=== PATIENT | male | born 1990 | race Caucasian/White ===

== ENCOUNTER 2023-03-08 14:41 | Emergency (ER) | payer OTHER, SELFPAY ==
--- NOTE | 2023-03-08 15:06 | ED.GENADULT ---
HPI - General Adult General Chief complaint: Unspecified Stated complaint: well adult check, medication refill Time Seen by Provider: 03/08/23 15:10 Source: patient Mode of arrival: ambulatory Limitations: no limitations History of Present Illness HPI narrative: Jayesh is a 32-year-old male patient presenting to clinic today with complaints of needing a medication refill on his seizure medication. He reports he is down from [facility]. States that his doctor that usually prescribes it is out of the office and cannot send him in prescription. Reports he only has 3 pills left. Does feel well managed on his oxcarbazepine. States his prescription is for 600 mg tablets twice a day in the morning and 3 tabs at night however insurance will only pay for 1200 mg twice daily. Related Data Allergies Allergy/AdvReac Type Severity Reaction Status Date / Time No Known Allergies Allergy Verified 06/27/21 14:58 Review of Systems Review of Systems: Pertinent positives per HPI. Patient denies any fever, chills, rash, headache, visual changes, dizziness, cough, runny nose, sore throat, shortness of breath, chest pain, palpitations, nausea, vomiting, diarrhea, constipation, abdominal pain, or any urinary issues. PMFSH Social History Social History Social History: current smoker Smoking status: Current every day smoker Comments At the time of my signature, I reviewed and agree with the nursing past medical, surgical, social, and family history. There is no relevant family history pertinent to the patient complaint. Exam Narrative: General: Well-developed, well nourished, in no apparent distress Head: Normocephalic, atraumatic Eyes: Pupils equally round and reactive to light bilaterally, EOM intact, sclera and conjunctive clear, no discharge, lids normal Ears: TMs intact and clear, ear canals clear, no drainage, grossly hearing normal. Nose: Nares patent, no discharge, no inflammation, no sinus tenderness. Mouth: Oropharynx without lesions or masses, good dentition, MMM. Neck: Supple, trachea midline, no enlargement of anterior or posterior cervical nodes, no thyroid masses or goiter palpable. Cardio: Regular rate and rhythm, s1 and s2 normal, no murmur appreciated. Resp: Clear to auscultation bilaterally anteriorly and posteriorly, no rhonchi, rales, wheezing or rubs Course Course Emergency Course: Portions of this record may have been created with voice recognition software. Level of Care: Express Care Visit Vital Signs Vital signs: Vital signs reviewed Medical Decision Making MDM Narrative Medical decision making narrative: At the time of visit patient is resting comfortably on the exam table. Patient appears to be nontoxic. Oxcarbazepine prescription sent to the pharmacy. Supportive measures were discussed with the patient and they voiced understanding discharge instructions and agrees to treatment plan. Return precautions reviewed Differential Diagnosis Differential Diagnosis: Encounter for medication refill, seizure disorder Discharge Plan Discharge Clinical Impression: Encounter for medication refill Patient Disposition: Home, Self-Care Condition: Stable Instructions: Antibiotic Form, Medicine Refill (ED) Additional Instructions: Take medications as prescribed Follow-up with your primary care as soon as possible Prescriptions: New oxcarbazepine 600 mg tablet See Rx Instructions .ROUTE .COMPLEX Qty: 150 0RF Rx Instructions: 600 mg orally ;Take 2 tablet in the AM and 3 tablets at HS. No Action oxcarbazepine 600 mg tablet See Rx Instructions .ROUTE .COMPLEX Qty: 150 5RF Dose Instruction: TAKE 2 TABLETS BY MOUTH ONCE DAILY IN THE MORNING AND 3 AT BEDTIME Rx Instructions: TAKE 2 TABLETS BY MOUTH ONCE DAILY IN THE MORNING AND 3 AT BEDTIME Follow-up/Referrals: PHYSICIAN,ASSISTANT PROFESSOR OF CRIMINAL JUSTICE [Prim
[2023-03-08 15:08] VITALS: BP 130/62; PULSE 75; RESP 18; TEMP 36.3; O2SAT 100
== END 2023-03-08 15:26 | disposition home or self-care (01) ==
PROVIDERS: Emergency Provider Nurse Practitioner Family
DX: Z76.0 Encounter for issue of repeat prescription (principal); F17.200 Nicotine dependence, unspecified, uncomplicated
CPT/HCPCS: 99211; 99213; G0463

== ENCOUNTER 2024-12-30 11:21 | Emergency (ER) | payer OTHER, SELFPAY ==
[2024-12-30 11:30] VITALS: BP 125/68; PULSE 71; RESP 16; TEMP 36.6; O2SAT 99
--- NOTE | 2024-12-30 11:58 | ED_ITS ---
HPI - General Adult General Chief complaint: Recheck/Abnormal Lab/Rx Stated complaint: Epilepsy meds Time Seen by Provider: 12/30/24 11:40 Source: patient Mode of arrival: ambulatory Limitations: no limitations History of Present Illness HPI narrative: 34-year-old male with history of epilepsy here for medication refill. Patient needs oxcarbazepine refilled. Has been on this medication since 2018. Has appointment with new primary care physician Mid January. no recent seizure activity. All systems reviewed and negative except as noted above. Related Data Allergies Allergy/AdvReac Type Severity Reaction Status Date / Time diphenhydramine (From Allergy Severe Anaphylaxis Verified 12/30/24 11:38 Benadryl) [facility] Social History Social History Social History: current smoker Smoking status: Current every day smoker Comments At time of signature, agree with nursing past medical, surgical, social and family history. There is no relevant family history pertinent to the presenting complaint. Exam Narrative: GENERAL: This is a well-nourished, well-developed patient, in no apparent distress. HEAD: normocephalic, atraumatic. EYES: PERRL. Sclera clear/white. Vision is grossly intact. EARS: External ears normal NOSE: External nose normal NECK: Neck supple, non-tender without lymphadenopathy, masses or thyromegaly. CARDIOVASCULAR: Regular rate and rhythm without murmurs, gallops, or rubs. RESPIRATORY: Clear to auscultation. Breath sounds equal bilaterally. No wheezes, rales, or rhonchi. SKIN: warm, Dry, intact with no suspicious lesions or rash, good texture and turgor. NEURO: awake, alert, and oriented to person, place and time. There were no obvious focal neurologic abnormalities. EXTREMITIES: No joint tenderness, effusion, or edema noted. Course Course Level of Care: Express Care Visit Vital Signs Vital signs: Vital Signs Temperature 36.6 C 12/30/24 11:30 Pulse Rate 71 12/30/24 11:30 Respiratory Rate 16 12/30/24 11:30 Blood Pressure 125/68 12/30/24 11:30 Pulse Oximetry 99 12/30/24 11:30 Oxygen Delivery Room Air 12/30/24 11:30 Temperature 36.6 C 12/30/24 11:30 Pulse Rate 71 10/16/25 11:30 Respiratory Rate 16 12/30/24 11:30 Blood Pressure 125/68 12/30/24 11:30 Pulse Oximetry 99 12/30/24 11:30 Oxygen Delivery Room Air 12/30/24 11:30 Reviewed Medical Decision Making MDM Narrative Medical decision making narrative: patient is well-appearing, nontoxic. Patient given 1 month refill of medication. Has appoint with new primary care physician in January. Vital Signs Vital Signs: Vital Signs Temperature 36.6 C 12/30/24 11:30 Pulse Rate 71 12/30/24 11:30 Respiratory Rate 16 12/30/24 11:30 Blood Pressure 125/68 12/30/24 11:30 Pulse Oximetry 99 12/30/24 11:30 Oxygen Delivery Room Air 12/30/24 11:30 Temperature 36.6 C 12/30/24 11:30 Pulse Rate 71 12/30/24 11:30 Respiratory Rate 16 12/30/24 11:30 Blood Pressure 125/68 12/30/24 11:30 Pulse Oximetry 99 12/30/24 11:30 Oxygen Delivery Room Air 12/30/24 11:30 Discharge Plan Discharge Clinical Impression: Encounter for medication refill, History of epilepsy Patient Disposition: Home Condition: Stable Additional Instructions: Continue to take medication as prescribed. Follow-up with primary care physician at scheduled appointment. Patient Language: Swedish Prescriptions: New oxcarbazepine 600 mg tablet See Rx Instructions .ROUTE .COMPLEX Qty: 150 0RF Rx Instructions: Take 2 tablets in the morning and then 3 tablets at bedtime No Action oxcarbazepine 600 mg tablet See Rx Instructions .ROUTE .COMPLEX Qty: 150 0RF Rx Instructions: 600 mg orally ;Take 2 tablet in the AM and 3 tablets at HS. oxcarbazepine 600 mg tablet See Rx Instructions .ROUTE .COMPLEX Qty: 150 5RF Dose Instruction: TAKE 2 TABLETS BY MOUTH ONCE DAILY IN THE MORNING AND 3 AT BEDTIME Rx Instructions: TAKE 2 TABLETS BY MOUTH ONCE DAILY IN THE MORNING AND 3 AT BEDTIME Follow-up/Referrals: Donta,Carson Lamar MD [Primary Care Provider] Time of Disposition: 11:57
--- OUTSIDE RECORDS SUMMARY | 2024-12-30 13:31 | XMS_ITS | Encounter Summary ---
Author Organization [facility] Address Formerly [facility] [place] [address] Care Team Providers Care Feed Research Technician Name Role Phone Jose J Navarro MD Primary Care Provider [phone] Gary Lovell MD Primary Care Provider [phone] Jose J Navarro MD Unavailable [phone] Shravan Vernon MD Primary Care Provider [phone] None, Provider Primary Care Provider Unavaila ble Encounter Details Date Type Department Care Team (Late st Contact Info) Description 12/10/2015 Abstract [facility] CONVERSION [id number] [place] [address] , Generic Conversion, Social History Tobacco Use Types Packs/Day Years Used Date Smoking Tobacco: Never Assessed Sex and Gender Information Value Date Recorded Sex Assigned at Not on file Legal Sex Male 7:24 PM CDT Gender Identity Male 06/11/2024 2:10 PM CDT Sexual Orientation Not on file documented as of this encounter Plan of Treatment Not on file documented as of this encounter Visit Diagnoses Not on filedocumented in this encounter Care Teams Feed Research Technician Relationship Specialty Start Date End Date Jose J Navarro MD PCP - General 09/28/15 02/23/21 Gary Lovell MD [address] [id number] PCP - General NEUROLOGY 02/24/21 2 Shravan Vernon MD [address] [place] [id number] PCP - General FAMILY PRACTICE 04/24/22 05/09/23 None, Provider, PCP - General UNKNOWN PHYSICIAN SPECIALTY 05/10/23 Jose J Navarro MD 02/24/21 documented as of this encounter
--- OUTSIDE RECORDS SUMMARY | 2024-12-30 13:31 | XMS_ITS | Clinical Summary ---
Author Organization [facility] Address [address] [place] [address] Care Team Providers Care Epic Kaleidoscope Analyst Name Role Phone Jose J Navarro MD Unavailable [phone] None, Provider MD Primary Care Provider Unavaila ble Allergies Active Allergy Reactions Criticality Noted Date Comments Diphenhydramine Unknown Medium 02/24/2021 Diphenhydramine Anaphylaxis,Unknown High 05/11/2012 Medications naproxen 500 MG tablet Take 1 tablet (500 mg total) by mouth 2 (two) times daily with meals. 60 tablet 0 Active loratadine (CLARITIN) 10 MG tablet Take 1 tablet (10 mg total) by mouth daily. 30 tablet 4 Active OXcarbazepine (TRILEPTAL) 600 MG Tab tablet 1 tablet (600 mg total) 2 (two) times daily. Pt Takes 2 tabs in am and 3 tabs at night 5 Active OXcarbazepine (TRILEPTAL) 600 MG Tab tablet Take 1 tablet (600 mg total) by mouth see administration instructions. Take 2 tablets in the morning and 3 tablets at night 70 tablet 5 Active OXcarbazepine (TRILEPTAL) 600 MG Tab tablet Take 1 tablet (600 mg total) by mouth see administration instructions. Please take 2 tablets in the morning and 3 tablets at night. 150 tablet 5 Active Active Problems No known active problems Social History Tobacco Use Types Packs/Day Years Used Date Smoking Tobacco: Every Day Cigarettes 0.5 5 Smokeless Tobacco: Never Alcohol Use Standard Drinks/Week Comments Not Currently 0 (1 standard drink = 0.6 oz pur e alcohol) AUDIT-C Answer Date Recorded Frequency of Alcohol Consumption Never 09/13/2018 Average Number of Drinks Not on file 019 Frequency of Binge Drinking Not on file 08/17 Sex and Gender Information Value Date Recorded Sex Assigned at Not on file Legal Sex Male 7:24 PM CDT Gender Identity Male 06/11/2024 2:10 PM CDT Sexual Orientation Not on file Last Filed Vital Signs Vital Sign Reading Time Taken Comments Blood Pressure 133/87 06/11/2024 1:17 PM CDT Pulse 95 06/11/2024 1:17 PM CDT Temperature 36.3 C (97.4 F) 06/11/2024 1:17 PM CDT Respiratory Rate 16 06/11/2024 1:17 PM CDT Oxygen Saturation 95% 06/11/2024 1:17 PM CDT Inhaled Oxygen Concentration - - Weight 83.9 kg (185 lb) 06/11/2024 1:17 PM CDT Height 182.9 cm (6') 06/11/2024 1:17 PM CDT Body Mass Index 25.09 06/11/2024 1:17 PM CDT Plan of Treatment Health Maintenance Due Date Last Done Comments Annual Physical 1992 Hepatitis C 2007 DTaP, Tdap and Td Vaccines ( 1 - Tdap) 2008 Hepatitis B Vaccines (1 of 3 - 19+ 3-dose series) 2008 Pneumococcal Vaccine: Pediat rics (0 to 5 Years) and At-Risk Patients (6 to 49 Years) (1 of 2 - PCV) 2008 HPV Vaccines (1 - 3-dose SCD M series) 2016 COVID-19 Vaccine ( - 2023-2 5 season) 2024 Influenza Adult (#1) 2024 Meningococcal B Vaccine Aged Out No l onger eligible based on patient's age to complete this topic Meningococcal Vaccine Aged Out No paula jarett eligible based on patient's age to complete this topic RSV Immunizations Under 20 Months Aged Out No longer eligible based on patient's age to complete this topic Insurance [employer] Care Teams Epic Kaleidoscope Analyst Relationship Specialty Start Date End Date None, Provider, PCP - General UNKNOWN PHYSICIAN SPECIALTY 05/10/23 Jose J Navarro MD 02/24/21
== END 2024-12-30 12:00 | disposition home or self-care (01) ==
PROVIDERS: Emergency Provider Nurse Practitioner Family; PCP Orthopaedic Surgery Sports Medicine
DX: Z76.0 Encounter for issue of repeat prescription (principal); G40.909 Epilepsy, unspecified, not intractable, without status epilepticus
CPT/HCPCS: 99211; G0463